=== PATIENT | male | born 1995 | race African-American/Black ===

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

== ENCOUNTER 2017-04-22 21:40 | Emergency (ER) | payer OTHER ==
[~2017-04-22] VITALS: Ht 180.3 cm; Wt 151.6 kg
[2017-04-22 22:58] LABS: HEMATOCRIT 45.4 % (39.0-50.0); HEMOGLOBIN 14.7 g/dl (14.0-18.0); IMMATURE GRANULOCYTES 0.1 % (0.0-1.0); MEAN CELL VOLUME 80.6 fL CALC (80.0-100.0); MEAN CORPUSCULAR HGB 26.1 pG CALC (26.0-32.0); MEAN CORPUSCULAR HGB CONC 32.4 g/L CALC (32.0-36.0); NEUT# 4.39 thou/uL (1.82-7.42); RED BLOOD COUNT 5.63 mill/uL (4.70-6.10); RED CELL DISTRI WIDTH 12.5 % (11.5-15.5); URINE BILIRUBIN - DIPSTICK NEGATIVE (NEGATIVE); URINE BLOOD DIPSTICK TRACE-INTACT (NEGATIVE); URINE CLARITY CLEAR; URINE COLOR YELLOW; URINE GLUCOSE - DIPSTICK NEGATIVE (NEGATIVE); URINE KETONE TRACE mg/dL (NEGATIVE); URINE LEUK ESTERASE NEGATIVE (NEGATIVE); URINE NITRITE - DIPSTICK NEGATIVE (Negative); URINE PROTEIN - DIPSTICK NEGATIVE (NEG-TRACE); URINE SPECIFIC GRAVITY 1.025
[2017-04-22 23:16] LABS: ALBUMIN 4.7 g/dL (3.2-5.0); ALKALINE PHOSPHATASE 68 u/l (38-126); AMYLASE 65 u/l (30-110); ANION GAP 15 (6-22 (CALC)); BILIRUBIN, TOTAL 0.6 mg/dL (0.0-1.4); BUN 11 mg/dL (9-20); BUN/CREATININE RATIO 12 (12-20 (CALC)); CALCIUM 9.5 mg/dL (8.4-10.2); CARBON DIOXIDE 30 mmol/l (22-30); CHLORIDE 101 mmol/l (95-108); CREATININE 0.9 mg/dL (0.7-1.3); GFR > 60 ML/MIN (>=60 (CALC)); GFR FOR AFR.AMER. > 60 ML/MIN (>=60 (CALC)); GLUCOSE 89 mg/dL (75-110); LIPASE 84 u/l (23-300); POTASSIUM 3.8 mmol/l (3.5-5.1); SGOT/AST 48 u/l (17-59); SGPT/ALT 46 u/l (21-72); SODIUM 142 mmol/l (137-146); TOTAL PROTEIN 8.4 g/dL (6.3-8.2)
[2017-04-22 23:28] LABS: MYOGLOBIN 42 ng/mL (0 - 121)
[2017-04-22 23:38] LABS: BARBITURATES NEGATIVE (NEGATIVE); COCAINE NEGATIVE (NEGATIVE); METHADONE NEGATIVE (NEGATIVE); OXCYCODONE NEGATIVE (NEGATIVE); TETRAHYDROCANNABIONOL NEGATIVE (NEGATIVE); TRICYLIC ANTIDEPRESSANTS NEGATIVE (NEGATIVE)
[2017-04-22] MEDS ORDERED: PROTONIX40 MG PO (23:47)
[2017-04-23 00:10] VITALS: BP 136/86
== END 2017-04-23 00:10 | disposition home or self-care (01) | DRG 392 ==
LOC: ED 21:40
PROVIDERS: Emergency Medicine
DX: R10.12 Left upper quadrant pain (principal); R10.13 Epigastric pain
CPT/HCPCS: S0164

== ENCOUNTER 2019-02-04 10:34 | Emergency (ER) | payer OTHER ==
[~2019-02-04] VITALS: Ht 180.3 cm; Wt 163.6 kg
[~2019-02-04 10:34] MED LIST changes: +PROTONIX40 MG PO
[2019-02-04 11:18] LABS: HEMATOCRIT 46.2 % (39.0-50.0); HEMOGLOBIN 14.8 g/dl (14.0-18.0); IMMATURE GRANULOCYTES 0.4 % (0.0-5.0); MEAN CELL VOLUME 80.3 fL CALC (80.0-100.0); MEAN CORPUSCULAR HGB 25.7 pG CALC (26.0-32.0); NEUT# 6.74 thou/uL (1.82-7.42); RED BLOOD COUNT 5.75 mill/uL (4.70-6.10); RED CELL DISTRI WIDTH 13.1 % (11.5-15.5)
[2019-02-04 11:37] LABS: ALBUMIN 4.7 g/dL (3.2-5.0); ALKALINE PHOSPHATASE 70 u/l (38-126); AMYLASE 51 u/l (30-110); ANION GAP 15 (6-22 (CALC)); BILIRUBIN, TOTAL 0.7 mg/dL (0.0-1.4); BUN 12 mg/dL (9-20); BUN/CREATININE RATIO 14 (12-20 (CALC)); CARBON DIOXIDE 27 mmol/l (22-30); CHLORIDE 103 mmol/l (95-108); CREATININE 0.9 mg/dL (0.7-1.3); GFR > 60 ML/MIN (>=60 (CALC)); GFR FOR AFR.AMER. > 60 ML/MIN (>=60 (CALC)); LIPASE 75 u/l (23-300); POTASSIUM 4.2 mmol/l (3.5-5.1); SGOT/AST 37 u/l (17-59); SODIUM 140 mmol/l (137-146); TOTAL PROTEIN 7.5 g/dL (6.3-8.2)
[2019-02-04] MEDS ORDERED: PHENERGAN25 MG/TAB PO (12:05)
[2019-02-04 12:06] VITALS: BP 142/77
== END 2019-02-04 12:17 | disposition home or self-care (01) | DRG 392 ==
LOC: ED 10:34
PROVIDERS: Family Medicine
DX: A08.4 Viral intestinal infection, unspecified (principal)

== ENCOUNTER 2019-09-23 | Emergency (ER) | payer OTHER ==
[~2019-09-23] MED LIST changes: +PHENERGAN25 MG/TAB PO
[2019-09-23] MEDS ORDERED: IBUPROFEN600 MG PO (06:21)
[2019-09-23] MEDS ORDERED: AMOXICILLIN500 MG PO (06:21)
== END 2019-09-23 06:27 | disposition home or self-care (01) | DRG 153 ==
DX: H66.91 Otitis media, unspecified, right ear (principal)

== ENCOUNTER 2021-09-26 05:51 | Emergency (ER) | payer MEDICARE ==
[~2021-09-26] VITALS: Ht 180.3 cm; Wt 145.5 kg
[~2021-09-26 05:51] MED LIST changes: +AMOXICILLIN500 MG PO; +IBUPROFEN600 MG PO
[2021-09-26 06:37] LABS: HEMOGLOBIN 14.2 g/dl (14.0-18.0); MEAN CELL VOLUME 82.6 fL CALC (80.0-100.0); MEAN CORPUSCULAR HGB 26.1 pG CALC (26.0-32.0); MEAN CORPUSCULAR HGB CONC 31.6 g/dL CAL (32.0-36.0); NEUT# 3.32 thou/uL (1.82-7.42); RED BLOOD COUNT 5.45 mill/uL (4.70-6.10); RED CELL DISTRI WIDTH 12.7 % (11.5-15.5)
[2021-09-26 08:12] VITALS: BP 144/87
== END 2021-09-26 08:20 | disposition home or self-care (01) ==
LOC: ED 05:51
PROVIDERS: Family Medicine
DX: U07.1 COVID-19 (principal)

== ENCOUNTER 2022-09-26 13:22 | Emergency (ER) | payer OTHER ==
[~2022-09-26] VITALS: Ht 180.3 cm; Wt 163.2 kg
[2022-09-26] VITALS (11 sets, daily range): BP systolic 115–131; BP diastolic 71–95
[2022-09-26 14:37] LABS: BASO% 0.3 % (0-3); EOS% 2.5 % (0-8); HEMATOCRIT 42.8 % (39.0-50.0); HEMOGLOBIN 14.1 g/dl (14.0-18.0); LYMPH% 31.2 % (15-41); MEAN CELL VOLUME 81.8 fL CALC (80.0-100.0); MEAN CORPUSCULAR HGB CONC 32.9 g/dL CAL (32.0-36.0); MONO% 5.9 % (2-13); NEUT# 4.06 thou/uL (1.82-7.42); NEUT% 60.1 % (42-76); RED BLOOD COUNT 5.23 mill/uL (4.70-6.10)
[2022-09-26 14:53] LABS: ALBUMIN 4.5 g/dL (3.2-5.0); ALKALINE PHOSPHATASE 61 u/l (38-126); ANION GAP 11 (6-22 (CALC)); BUN 14 mg/dL (9-20); BUN/CREATININE RATIO 14 (12-20 (CALC)); CARBON DIOXIDE 30 mmol/l (22-30); CHLORIDE 106 mmol/l (95-108); GFR FOR AFR.AMER. > 60 ML/MIN (>=60 (CALC)); GFR OTHER RACES > 60 ML/MIN (>=60 (CALC)); POTASSIUM 4.3 mmol/l (3.5-5.1); SGOT/AST 36 u/l (17-59); SODIUM 143 mmol/l (137-146); TOTAL PROTEIN 7.8 g/dL (6.3-8.2)
[2022-09-26 14:54] LABS: BILIRUBIN, TOTAL 0.3 mg/dL (0.0-1.4)
[2022-09-26 15:23] LABS: TSH, 3RD GENERATION 2.75 uIU/mL (0.47 - 4.68)
[2022-09-26] MEDS ORDERED: LOPRESSOR25 M1 PO (16:20)
[2022-09-28] MEDS ORDERED: LOPRESSOR25 M1 PO (15:05)
== END 2022-09-26 16:40 | disposition home or self-care (01) | DRG 310 ==
LOC: ED 13:22
PROVIDERS: Family Medicine
DX: I48.20 Chronic atrial fibrillation, unspecified (principal)

== ENCOUNTER 2023-03-14 18:10 | Emergency (ER) | payer SELFPAY ==
[2023-03-14] VITALS (11 sets, daily range): BP systolic 130–150; BP diastolic 79–100
[~2023-03-14] VITALS: Ht 180.3 cm; Wt 171.2 kg
[~2023-03-14 18:10] MED LIST changes: +LOPRESSOR25 M1 PO
[2023-03-14 19:08] LABS: BASO% 0.3 % (0-3); EOS% 1.3 % (0-8); HEMATOCRIT 44.7 % (39.0-50.0); HEMOGLOBIN 14.3 g/dl (14.0-18.0); IMMATURE GRANULOCYTES 0.1 % (0.0-5.0); MEAN CELL VOLUME 80.5 fL CALC (80.0-100.0); MEAN CORPUSCULAR HGB 25.8 pG CALC (26.0-32.0); MONO% 5.9 % (2-13); NEUT# 5.84 thou/uL (1.82-7.42); NEUT% 81.4 % (42-76); RED BLOOD COUNT 5.55 mill/uL (4.70-6.10); RED CELL DISTRI WIDTH 13.1 % (11.5-15.5)
[2023-03-14 19:12] LABS: ALBUMIN 4.7 g/dL (3.2-5.0); ALKALINE PHOSPHATASE 58 u/l (38-126); ANION GAP 13 (6-22 (CALC)); BUN 14 mg/dL (9-20); BUN/CREATININE RATIO 13 (12-20 (CALC)); CARBON DIOXIDE 31 mmol/l (22-30); CHLORIDE 101 mmol/l (95-108); GFR FOR AFR.AMER. > 60 ML/MIN (>=60 (CALC)); GFR OTHER RACES > 60 ML/MIN (>=60 (CALC)); LIPASE 98 u/l (23-300); POTASSIUM 4.1 mmol/l (3.5-5.1); SGOT/AST 36 u/l (17-59); SODIUM 141 mmol/l (137-146); TOTAL PROTEIN 7.6 g/dL (6.3-8.2)
[2023-03-14 19:13] LABS: BILIRUBIN, TOTAL 0.7 mg/dL (0.2-1.3)
[2023-03-14] MEDS ORDERED: OMEPRAZOLE DR20 MG PO (19:59)
== END 2023-03-14 21:45 | disposition home or self-care (01) | DRG 392 ==
LOC: ED 18:10
PROVIDERS: Nurse Practitioner Family
DX: K29.70 Gastritis, unspecified, without bleeding (principal)
CPT/HCPCS: S0164

== ENCOUNTER 2024-10-13 22:44 | Emergency (ER) | payer SELFPAY ==
[~2024-10-13] VITALS: Ht 180.3 cm; Wt 163.0 kg
[~2024-10-13 22:44] MED LIST changes: +OMEPRAZOLE DR20 MG PO
[2024-10-13] MEDS ORDERED: ACETAMINOPHEN 325 MG/TAB PO ONE (23:10)
[2024-10-13] MEDS ORDERED: ONDANSETRON 4 MG/TAB ODT PO ONE (23:10)
[2024-10-13] MEDS ORDERED: ONDANSETRON4 MG PO (23:50)
[2024-10-14 00:16] VITALS: BP 149/96
== END 2024-10-14 00:16 | disposition home or self-care (01) | DRG 866 ==
LOC: ED 22:44
DX: B34.9 Viral infection, unspecified (principal); Z20.822 Contact with and (suspected) exposure to COVID-19